=== PATIENT | male | born 1980 | race Two or more races ===

== ENCOUNTER 2023-06-14 11:15 | Outpatient (REF) | payer MEDICAID, SELFPAY ==
[2023-06-14 13:02] LABS: MANUAL DIFF FLAG NO
[2023-06-14 13:13] LABS: Basophils Absolute Auto 0.1 X10*3/uL (0.0-0.2); Basophils Percent Auto 0.5 % (0-2); Eosinophils Absolute Auto 0.1 X10*3/uL (0.0-0.4); Eosinophils Percent Auto 0.5 % (0-4); Hematocrit 41.3 % (42.0-52.0); Hemoglobin 13.4 g/dl (14.0-18.0); Imm Gran Abs Auto 0.03 X10*3/uL (0.00-0.03); Imm Gran Pct Auto 0.3 % (0.0-0.4); Lymphocytes Absolute Auto 1.2 X10*3/uL (1.2-4.9); Lymphocytes Percent Auto 12.2 % (20-40); Mean Corpuscular HGB Conc 32.4 g/dl (31.0-36.0); Mean Corpuscular Hemoglobin 31.5 pg (27.0-33.0); Mean Corpuscular Volume 97.2 fL (80.0-98.0); Monocytes Absolute Auto 0.4 X10*3/uL (0.1-1.2); Monocytes Percent Auto 4.2 % (2-11); Neutrophils Absolute Auto 8.3 x10*3/uL (2.0-8.3); Neutrophils Percent Auto 82.3 % (45-73); Platelet Count 182 X10*3/uL (160-400); Red Blood Count 4.25 X10*6/uL (4.60-5.80); Red Cell Distribution Width 13.4 % (11.0-16.0); White Blood Count 10.1 X10*3/uL (4.8-10.8)
[2023-06-14 13:20] LABS: Estimated Average Glucose 105 mg/dL; Hemoglobin A1C 124.8348 umol/L; Hemoglobin A1c % 5.3 % (<6.0)
[2023-06-14 13:29] LABS: Alanine Aminotransferase 8 U/L (0-40); Alkaline Phosphatase 50 U/L (39-117); Anion Gap 10 (12-20); Aspartate Amino Transferase 15 U/L (5-37); Bilirubin Total 0.5 mg/dL (0.0-1.0); Blood Urea Nitrogen 16 mg/dL (9-16); Calcium 8.9 mg/dL (8.4-10.2); Carbon Dioxide 27 mmol/L (22-29); Chloride 109 mmol/L (96-108); Cholesterol 142 mg/dL (<200); Estimated Glomerular Filt Rate > 60; Glucose Random 119 mg/dL (60-115); HDL Cholesterol 64 mg/dL (>40); LDL Cholesterol Calculated 69 mg/dL (<100); Potassium 3.6 mmol/L (3.3-5.1); Sodium 142 mmol/L (135-145); Total Protein 6.6 g/dL (6.5-8.0); Triglycerides 48 mg/dL (<150)
[2023-06-14 13:43] LABS: TSH reflex Free T4 0.35 uIU/mL (0.32-4.0)
[2023-06-15 04:12] LABS: Syphilis Screen Nonreactive (Nonreactive)
[2023-06-15 04:39] LABS: HIV AB/AG Nonreactive (Nonreactive); HIV Num 1 0.05 S/CO (0.00-0.99); ~HepC Num1 0.14 S/CO (0.00-0.79); ~Hepatitis C Antibody Nonreactive (Nonreactive)
== END 2023-06-14 11:16 | disposition home or self-care (01) ==
LOC: HO.HHCL 11:15
PROVIDERS: Visit Provider General Practice
DX: Z00.01 Encounter for general adult medical examination with abnormal findings (principal)
CPT/HCPCS: 36415; 80053; 80061; 83036; 84443; 85025; 86780; 86803; 87389

== ENCOUNTER 2025-05-01 14:29 | Outpatient (REF) | payer MEDICAID, SELFPAY ==
--- NOTE | ~2025-05-01 | XR_ITS ---
EXAMINATION: XR HIP 2 OR MORE VIEWS RIGHT HISTORY: right hip pain and giving way COMPARISON: There are no prior studies available for comparison. FINDINGS: Two views of the right hip are submitted. Osseous mineralization is normal. There is no fracture or dislocation. The joint space is maintained. The soft tissues are unremarkable. XR/XR hip RT min 2V IMPRESSION: Unremarkable examination of the right hip. Electronically signed by: Otto Ellison MD 05/04/2025 09:37 AM EDT
--- NOTE | ~2025-05-01 | XR_ITS ---
EXAMINATION: XR LUMBOSACRAL SPINE CLINICAL INFORMATION: R hip and buttock pain COMPARISON: None available. TECHNIQUE: Three views of the lumbosacral spine. FINDINGS: There are vestigial ribs at L1, right larger than left. Vertebral body height is preserved. L2-3 demonstrates subtle retrolisthesis. L3-4 demonstrates mild disc space narrowing, subtle retrolisthesis, and endplate osteophytes. L4-5: There is subtle retrolisthesis, mild disc space narrowing, and endplate osteophytes. L5-S1 demonstrates facet sclerosis and osteophyte formation. XR/XR lumbar spine 2-3V IMPRESSION: Moderate facet osteoarthritis at L5-S1. Electronically signed by: Francisco Poon MD 05/01/2025 03:06 PM EDT
--- OUTSIDE RECORDS SUMMARY | 2025-05-01 15:49 | XMS_ITS | Encounter Summary ---
Author Organization [employer] Address [address] [place] [address] [address] [place] [address] Care Team Providers Care Websphere Process Server Developer Name Role Phone Emilie Amezquita MD Primary Care Provider [phone] Reason for Visit * Reason Onset Date Comments Reschedule 02/21/2024 Encounter Details Date Type Department Care Team ([facility] Contact Info) Description 02/21/2024 Telephone [facility] [address] [place], [place] [phone] Emilie Amezquita MD [address] [place], [place] [phone] Reschedule Social History Tobacco Use Types Packs/Day Years Used Date Smoking Tobacco: Former Cigarettes Passive Smoke Exposure: Current Smokeless Tobacco: Never Alcohol Use Standard Drinks/Week Comments Never 0 (1 standard drink = 0.6 oz pur e alcohol) Depression Answer Date Recorded Patient Health Questionnaire-9 Score 15 06/11/2023 Housing Stability Answer Date Recorded What is your housing situation today? I have brenda carias 08/23/[address] you li ve. Do you have problems with any of the following? None of the above 08/23/2023 Food Insecurity Answer Date Recorded Within the past 12 months, y ou worried that your food would run out before you got money to buy more: Never True 08/23/2023 Within the past 12 months,th e food you bought just didn't last and you didn't have enough money to get more: Never True 03/2023 Transportation Answer Date Recorded In the past 12 months, has l ack of transportation kept you from medical appts, meetings, work or from getting things needed for daily living? No 02/11/2024 Utilities Answer Date Recorded In the past 12 months, has t he electric, gas, oil or water company threatened to shut off services in your home? No 08/23/2023 Depression Answer Date Recorded Patient Health Questionnaire-2 Score 6 06/11/2023 Sex and Gender Information Value Date Recorded Sex Assigned at Male 08/17/2022 10:36 AM EDT Legal Sex Male 10:36 AM EDT Gender Identity Male 05/04/2023 12:31 PM EDT Sexual Orientation Don't know 05/04/2023 12 :31 PM EDT documented as of this encounter Miscellaneous Notes * Telephone Encounter - Abril Sheridan - 02/21/2024 9:23 AM EDT Tc from pt requesting r/s appt, typewriter repairer attempted to schedule nothing available from here to April. documented in this encounter Plan of Treatment Not on file documented as of this encounter Visit Diagnoses Not on filedocumented in this encounter Additional Health Concerns Assessment Noted Time PHQ-9 Depression Total Score: 15 023 1:50 PM EDT documented as of this encounter Care Teams Websphere Process Server Developer Relationship Specialty Start Date End Date Emilie Amezquita MD [address] [place] [address] PCP - General Family Medicine 05/13/23 documented as of this encounter
== END 2025-05-01 14:30 | disposition home or self-care (01) ==
LOC: HO.HHCX 14:29
PROVIDERS: Visit Provider General Practice
DX: M25.551 Pain in right hip (principal); M53.3 Sacrococcygeal disorders, not elsewhere classified
CPT/HCPCS: 72100; 73502

== ENCOUNTER → 2025-05-01 14:30 | Outpatient (BNV) | payer MEDICAID, SELFPAY | PROVIDERS: Visit Provider Radiology Diagnostic Radiology | DX: M47.897 Other spondylosis, lumbosacral region (principal) | CPT/HCPCS: 72100 ==

== ENCOUNTER 2025-05-25 01:37 | Emergency (ER) | payer MEDICAID, SELFPAY ==
--- NOTE | ~2025-05-25 | CT_ITS ---
CLINICAL HISTORY: severe R hip pain CT pelvis with contrast Comparison: None provided Findings: Normal alignment without acute fracture. Mild hip osteoarthritis. Two small right-sided os acetabuli. [id number] symphysis pubis osteoarthritis. Visualized soft tissues and pelvic contents are unremarkable. A few small sclerotic foci within the right proximal femur/acetabulum likely due to bone islands. IMPRESSION: No acute findings. This document has been electronically signed by: Bernarda Pop MD on 05/25/2025 07:47:38
[2025-05-25 01:48] VITALS: BP 117/67; PULSE 69; RESP 16; TEMP 36.9; O2SAT 98; BMI 24.4
[2025-05-25 02:10] LABS: Hematocrit 41.8 % (42.0-52.0); Hemoglobin 14.4 g/dl (14.0-18.0); Imm Gran Abs Auto 0.02 X10*3/uL (0.00-0.03); Imm Gran Pct Auto 0.2 % (0.0-0.4); Lymphocytes Absolute Auto 1.9 X10*3/uL (1.2-4.9); MANUAL DIFF FLAG NO; Mean Corpuscular HGB Conc 34.4 g/dl (31.0-36.0); Mean Corpuscular Hemoglobin 32.1 pg (27.0-33.0); Mean Corpuscular Volume 93.1 fL (80.0-98.0); NRBC Abs Auto 0.000 X10*3/uL (0.0-0.012); NRBC Pct Auto 0.0 /100WBC (0.0-0.2); Platelet Count 207 X10*3/uL (160-400); Red Blood Count 4.49 X10*6/uL (4.60-5.80); White Blood Count 8.8 X10*3/uL (4.8-10.8)
[2025-05-25 02:25] LABS: Alanine Aminotransferase 11 U/L (0-40); Albumin Level 4.6 g/dL (3.5-5.0); Alkaline Phosphatase 69 U/L (39-117); Anion Gap 12 (12-20); Aspartate Amino Transferase 20 U/L (5-37); Blood Urea Nitrogen 14 mg/dL (9-16); Calcium 9.1 mg/dL (8.4-10.2); Carbon Dioxide 28 mmol/L (22-29); Chloride 106 mmol/L (96-108); Creatinine Clr Calc Pharmacy 116.4; Estimated Glomerular Filt Rate > 60; Lipase 22 U/L (8-78); Potassium 4.0 mmol/L (3.3-5.1); Sodium 142 mmol/L (135-145); Total Protein 7.1 g/dL (6.5-8.0)
[2025-05-25 03:54] VITALS: BP 103/54; PULSE 55; RESP 18; TEMP 36.6; O2SAT 97
[2025-05-25 04:33] LABS: Appearance Urine Clear; Glucose Urine UA Negative (Negative); PH 6.0 (5.0-9.0); Specific Gravity - Urine 1.025 (1.005-1.025)
--- NOTE | 2025-05-25 05:00 | ED.GENADULT ---
HPI - General Adult General Chief complaint: General Medical Stated complaint: groin pain Time Seen by Provider: 05/25/25 04:58 Source: patient, family and old records reviewed Mode of arrival: ambulatory Limitations: no limitations History of Present Illness ED Provider: VANCE WAGNER narrative: 45 yo male with no sig PMH who has been dealing with R hip pain x 3 months that is much worse and has been so severe he is crying and cannot sleep. There is no known trauma. He has only tried OTC medications. His doctor did hip and back xray that showed L5-S1 facet OA but nothing else. He notes it hurts to move and walk with pain starting R lateral thigh - greater trochanter and wraps around his groin. No fevers, thinners, rash, IVDA. No other unusual symtpoms just localized pain. He has not been prescribed any medications. NO pain and no testicular symptoms. MD complaint: groin pain. Onset (ago): month(s) (3) Location: right and lower extremity Radiation: abdomen Severity: severe Quality: stabbing and aching Pain Consistency: constant Relieving factors: immobilization Exacerbating factors: movement Associated symptoms: denies other symptoms Treatments prior to arrival: none Related Data Previous Rx's ?Medication ?Instructions ?Recorded cyclobenzaprine 10 mg tablet 10 mg PO TID PRN muscle spasm #20 05/25/25 tabs ketorolac 10 mg tablet 10 mg PO TID PRN pain 5 days #15 05/25/25 tabs ondansetron 4 mg disintegrating 4 mg PO Q8H PRN nausea and 05/25/25 tablet vomiting #20 tabs prednisone 20 mg tablet 40 mg (2 x 20 mg) PO DAILY 4 days 05/25/25 #8 tabs Allergies Allergy/AdvReac Type Severity Reaction Status Date / Time No Known Allergies Allergy Verified 05/25/25 01:52 Review of Systems Review of Systems: Constitutional : No Fever, No Chills ENT/Mouth : No Ear Pain, No Hoarseness, No sore throat Eyes: No Eye Pain, No Swelling, No Redness, No Foreign Body Cardiovascular : No Chest Pain, No SOB Respiratory : No Cough, No Dyspnea Gastrointestinal : No Nausea, No Vomiting, No Diarrhea, No abdominal Pain Genitourinary : No Dysuria, No Hematuria Musculoskeletal : positive joint pain, No Myalgias, No Joint Swelling Skin : No Skin lacerations, No rash Neuro : No Weakness, No Numbness, No Loss of Consciousness, No Dizziness, No Headache All other systems reviewed and are negative [facility] Past Medical History Attestation statement: The following information was validated with the patient. Source: old records reviewed Medical History No pertinent past medical history Social History Social History Smoked in Last 30 Days: Yes Use of substances other than those prescribed or required for medical reasons: Yes Substance Use Type: Marijuana Advance Directives: No Do you have a plan to hurt others: No Plan Physical Exam ED Vital Signs: Vital Signs - 24 hr 05/25/25 01:48 05/25/25 03:54 05/25/25 07:21 Temperature 98.4 F 97.8 F Pulse Rate 69 55 Respiratory Rate 16 18 16 Blood Pressure 117/67 103/54 L Pulse Oximetry 98 97 Oxygen Delivery Method Room Air Room Air BMI result Body Mass Index 24.4 Appearance: Alert. Oriented X3. No acute distress. Eyes: Pupils equal, round and reactive to light. ENT: Pharynx normal. Neck: Normal inspection. Neck supple. CVS: Normal heart rate and rhythm. Pulses normal. Respiratory: No respiratory distress. Breath sounds normal. Abdomen: Soft and nontender. : no hernia, no scrotal swelling/ttp/rash Skin: Skin warm and dry. Normal skin color. Normal skin turgor. Extremities: No lower extremity edema. R lateral hip near greater trochanter ttp but no swelling, no rash, pain with any ROM of hip no swelling, distal NV intact Neuro: Oriented X 3. No motor deficit. No sensory deficit. CN2-12 intact Medications Administered Discontinued Medications Generic Name Dose Route Start Last Admin Trade Name Freq PRN Reason Stop Dose Admin Diazepam 2.5 mg 05/25/25 05:13 05/25/25 06:07 Diazepam 10 Mg/2 Ml Cartridge IVPUSH 05/25/25 05:14 2.5 mg STAT STA Administration Iohexol 85 ml 05/25/25 05:49 05/25/25 05:54 Iohexol 350 Mg/Ml 100 Ml Infus..Btl IV 05/25/25 05:50 85 ml ONCE ONE Administration Ketorolac Tromethamine 15 mg 05/25/25 05:12 05/25/25 06:06 Ketorolac Tromethamine 30 Mg/Ml Vial IVPUSH 05/25/25 05:13 15 mg ONCE ONE Administration Prednisone 60 mg 05/25/25 05:12 05/25/25 06:07 Prednisone 20 Mg Tablet PO 05/25/25 05:13 60 mg ONCE ONE Administration Medical Decision Making Medical Decision Making [facility] Narrative: 45 yo male with no sig PMH here with c/o worsening R hip pain without risk factors such as fevers, IVDA, trauma, rash. Given his degree of pain I am obtaining CT scan for effusion/signs of infection/osteo/occult fracture/mass. I will start on pain control and prednisone. He is NV intact on exam, no signs of ext infection, no hernia noted. Differential Diagnosis Differential Diagnoses: The differential diagnosis associated with the presentation includes infection/osteo/occult fracture/mass/bursitis Admission/Observation Consideration of admission/observation: Escalation of care including admission/observation considered labs reassuring, pain improved, no acute emergent issue on CT scan will provide analgesia/steroids and refer to orthopedics Lab Data [facility] Lab Attestation statement: I reviewed the patient's lab results. 05/25/25 02:06 05/25/25 02:06 Labs: Lab Results 05/25/25 05/25/25 Range/Units 02:06 04:28 WBC 8.8 (4.8-10.8) X10*3/uL RBC 4.49 L (4.60-5.80) X10*6/uL Hgb 14.4 (14.0-18.0) g/dl Hct 41.8 L (42.0-52.0) % MCV 93.1 (80.0-98.0) fL MCH 32.1 (27.0-33.0) pg MCHC 34.4 (31.0-36.0) g/dl RDW 12.7 (11.0-16.0) % Plt Count 207 (160-400) X10*3/uL MPV 9.4 (9.4-12.4) fL Immature Gran % (Auto) 0.2 (0.0-0.4) % Neut % (Auto) 72.0 (45-73) % Lymph % (Auto) 21.1 (20-40) % [place] % (Auto) 5.4 (2-11) % Eos % (Auto) 0.8 (0-4) % Baso % (Auto) 0.5 (0-2) % Lymph # (Auto) 1.9 (1.2-4.9) X10*3/uL [place] # (Auto) 0.5 (0.1-1.2) X10*3/uL Eos # (Auto) 0.1 (0.0-0.4) X10*3/uL Baso # (Auto) 0.0 (0.0-0.2) X10*3/uL Abs Immat Gran (auto) 0.02 (0.00-0.03) X10*3/uL Absolute Neuts (auto) 6.3 (2.0-8.3) x10*3/uL Absolute Nucleated RBC 0.000 (0.0-0.012) X10*3/uL Nucleated RBC % (auto) 0.0 (0.0-0.2) /100WBC ESR 4 (0-15) MM/HR Sodium 142 (135-145) mmol/L Potassium 4.0 (3.3-5.1) mmol/L Chloride 106 (96-108) mmol/L Carbon Dioxide 28 (22-29) mmol/L Anion Gap 12 (12-20) BUN 14 (9-16) mg/dL Creatinine 0.87 (0.5-1.4) mg/dL Estim Creat Clear Calc 116.4 Estimated GFR > 60 Random Glucose 121 H (60-115) mg/dL Calcium 9.1 (8.4-10.2) mg/dL Total Bilirubin 0.3 (0.0-1.0) mg/dL Direct Bilirubin 0.1 (0.0-0.5) mg/dL AST 20 (5-37) U/L ALT 11 (0-40) U/L Alkaline Phosphatase 69 (39-117) U/L C-Reactive Protein 0.16 (< or = 0.50) mg/dL Total Protein 7.1 (6.5-8.0) g/dL Albumin 4.6 (3.5-5.0) g/dL Lipase 22 (8-78) U/L Urine Color Yellow Urine Appearance Clear Urine pH 6.0 (5.0-9.0) Ur Specific [place] 1.025 (1.005-1.025) Urine Protein Negative (Neg-Trace) mg/dL Urine Glucose (UA) Negative (Negative) mg/dL Urine Ketones Trace (Negative) mg/dL Urine Blood Negative (Negative) Urine Nitrite Negative (Negative) Ur Leukocyte Esterase Negative (Negative) Independent Interpretation I performed an independent interpretation of an: CT Scan (normal ) Radiology Impression Discussion of test interpretation with radiology: I have reviewed the radiologist's reading. Independent Historian Clinical information obtained from an independent historian. History obtained from or confirmed by: Spouse External Record Review External record reviewed: Outpatient record and Prior outpatient radiology Prescription Management I considered prescription management with: Other Discharge Plan Discharge Clinical Impression: Rt groin pain Patient Disposition: Home, Self-Care Instructions: Pelvic Pain (ED) Additional Instructions: labs reassuring CT scan normal please follow up with orthopedics all meds need to be taken with food return for any worsening symptoms or concerns. CLINICAL HISTORY: severe R hip pain CT pelvis with contrast Comparison: None provided Findings: Normal alignment without acute fracture. Mild hip osteoarthritis. Two small right-sided os acetabuli. [id number] symphysis pubis osteoarthritis. Visualized soft tissues and pelvic contents are unremarkable. A few small sclerotic foci within the right proximal femur/acetabulum likely due to bone islands. IMPRESSION: No acute findings. Prescriptions: New cyclobenzaprine 10 mg tablet 10 mg PO TID PRN (Reason: muscle spasm) Qty: 20 0RF prednisone 20 mg tablet 40 mg PO DAILY 4 Days Qty: 8 0RF ketorolac 10 mg tablet 10 mg PO TID PRN (Reason: pain) 5 Days Qty: 15 0RF Rx Instructions: given IV toradol in department ondansetron 4 mg tablet,disintegrating 4 mg PO Q8H PRN (Reason: nausea and vomiting) Qty: 20 0RF Referrals: [facility] [Provider Group] Referral Note: call to schedule Stand Alone Forms: Work/School Release Print Language: Afghan
--- NOTE | 2025-05-25 05:44 | PC.NURSE ---
IV established, pt off to CT, plan to medicate upon return.
[2025-05-25] MEDS: iohexoL 350 MG/ML 100 ML INFUS..BTL 85 ML IV (05:54)
[2025-05-25] MEDS: diazePAM 10 MG/2 ML CARTRIDGE 2.5 MG IVPUSH (06:07)
--- NOTE | 2025-05-25 06:10 | PC.NURSE ---
Pt returns from CT, medicated per MAR.
[2025-05-25 07:21] VITALS: RESP 16
[2025-05-25 08:20] VITALS: BP 100/51; PULSE 59; RESP 16; TEMP 36.2; O2SAT 97
[2025-05-25 08:23] VITALS: BP 100/51; PULSE 59; RESP 16; TEMP 36.2; O2SAT 97
== END 2025-05-25 08:24 | disposition home or self-care (01) ==
PROVIDERS: Emergency Provider Emergency Medicine; PCP General Practice
DX: R10.30 Lower abdominal pain, unspecified (principal); M25.551 Pain in right hip
CPT/HCPCS: 36415; 73701; 80053; 81003; 82248; 83690; 85025; 85652; 86140; 96374; 96375; 99284; J1885; J3360; Q9967

== ENCOUNTER → 2025-05-25 05:13 | Outpatient (BNV) | payer MEDICAID, SELFPAY | PROVIDERS: Emergency Provider Emergency Medicine; PCP General Practice; Visit Provider Radiology Diagnostic Radiology | DX: M16.11 Unilateral primary osteoarthritis, right hip (principal) | CPT/HCPCS: 73701 ==